=== PATIENT | male | born 1935 | race Caucasian/White ===

== ENCOUNTER 2017-06-21 10:35 | Emergency (ER) | payer MEDICARE, MEDICAID ==
[~2017-06-21] VITALS: Ht 175.3 cm; Wt 102.0 kg
[~2017-06-21 10:35] MED LIST: AMIO200T57 PO; APIX5TAB3 PO; CLOP75TA15 PO; DOCU-28 PO; FAMO-1 PO; FLO0.4C PO; GABA-530 PO; LEVO100T9 PO; LIDO700A35 TP; METH500T6 PO; SIMV20TA5 PO; TOLT4CAP PO; VAL2T PO
[2017-06-21] MEDS ORDERED: normal saline 1000ML IV soln IVB ONE ×2 (11:30→14:00)
[2017-06-21 13:03] LABS: BASOPHILS % (AUTO) 0.1 % (0-1); EOSINOPHILS % (AUTO) 0 % (0-6); HEMATOCRIT 45.2 % (42.0-52.0); HEMOGLOBIN 15.1 g/dl (14.0-17.9); LYMPHOCYTES # (AUTO) 0.8 X10'3 (1.1-4.8); LYMPHOCYTES % (AUTO) 5.7 % (21-51); MEAN CORPUSCULAR HEMOGLOBIN 33.2 PG (27.0-31.0); MEAN CORPUSCULAR HGB CONC 33.4 % (33.0-36.5); MEAN CORPUSCULAR VOLUME 99.4 FL (78-98); MEAN PLATELET VOLUME 7.6 FL (7.4-10.4); MONOCYTES # (AUTO) 0.5 X10'3 (0-0.9); MONOCYTES % (AUTO) 3.9 % (2-12); NEUTROPHILS # (AUTO) 12.2 X10'3 (1.8-7.7); NEUTROPHILS % (AUTO) 90.3 % (42-75); PLATELET COUNT 175 X10'3 (140-440); RED BLOOD COUNT 4.54 X10'6 (4.70-6.10); WHITE BLOOD COUNT 13.5 X10'3 (4.5-11.0)
[2017-06-21 13:44] LABS: CLARITY,URINE SLIGHTLY CLOUDY (Clear); COLOR,URINE YELLOW (Yellow); GLUCOSE, URINE NEGATIVE (Neg); KETONES,URINE 15 mg/dl (Neg); LEUKOCYTE ESTERASE ,URINE NEGATIVE (Neg); NITRITES, URINE NEGATIVE (Neg); OCCULT BLOOD,URINE LARGE (Neg); PROTEIN,URINE 30 mg/dl (Neg); UROBILINOGEN,URINE 0.2 E.U/dL (0.2-1.0)
[2017-06-21 13:46] LABS: UA COLLECTION TYPE CLN CATCH MIDSTREAM
[2017-06-21 13:56] LABS: MUCUS STRANDS MODERATE /LPF (Neg); RBC,URINE TNTC /HPF (0-2); RENAL CELLS, URINE FEW /HPF; SQUAMOUS EPITHELIAL CELL,UR FEW /LPF (FEW); TRANSITIONAL EPI CELLS,URINE FEW /HPF; WBC,URINE 0-4 /HPF (0-4)
[2017-06-21 13:59] LABS: BACTERIA,URINE FEW /HPF (Neg)
[2017-06-21 16:18] LABS: ALANINE AMINOTRANSFERASE 49 U/L (12-78); ALBUMIN 3.1 G/DL (3.4-5.0); ALBUMIN/GLOBULIN RATIO 0.6 (1.1-1.5); ALKALINE PHOSPHATASE 120 IU/L (46-116); ANION GAP 13 (8-16); ASPARTATE AMINO TRANSFERASE 54 U/L (10-37); BILIRUBIN,TOTAL 0.6 MG/DL (0.1-1.0); BLOOD UREA NITROGEN 14 MG/DL (7-18); BUN/CREATININE RATIO 13.7 (5.4-32.0); CALCIUM 8.6 MG/DL (8.5-10.1); CHLORIDE 100 MMOL/L (99-107); CREATININE 1.02 MG/DL (0.60-1.10); GLUCOSE 84 MG/DL (70-104); MAGNESIUM 1.7 MG/DL (1.5-2.4); POTASSIUM 3.7 MMOL/L (3.5-5.1); SODIUM 137 MMOL/L (135-145); TOTAL CARBON DIOXIDE 23.9 MMOL/L (24-32); TOTAL PROTEIN 8.2 G/DL (6.4-8.2); eGFR 70 ML/MIN
[2017-06-21] MEDS ORDERED: ketorolac trometh. 30mg/ml inj. IV ONE (17:05)
[2017-06-21] MEDS ORDERED: HYDROcodone/acetaminophen 10/325mg tab PO ONE (18:40)
[2017-06-21] MEDS ORDERED: HYDR-565 PO (18:59)
[2017-06-21 19:52] VITALS: BP 156/62
== END 2017-06-21 19:10 | disposition home or self-care (01) ==
LOC: ER 10:35
DX: G89.29 Other chronic pain (principal); R53.1 Weakness; F11.90 Opioid use, unspecified, uncomplicated; I48.91 Unspecified atrial fibrillation; I25.10 Atherosclerotic heart disease of native coronary artery without angina pectoris; E78.00 Pure hypercholesterolemia, unspecified; E03.9 Hypothyroidism, unspecified; I25.2 Old myocardial infarction; E11.22 Type 2 diabetes mellitus with diabetic chronic kidney disease; I12.9 Hypertensive chronic kidney disease with stage 1 through stage 4 chronic kidney disease, or unspecified chronic kidney disease; M06.9 Rheumatoid arthritis, unspecified; N18.9 Chronic kidney disease, unspecified; Z86.73 Personal history of transient ischemic attack (TIA), and cerebral infarction without residual deficits; Z79.899 Other long term (current) drug therapy; Z88.8 Allergy status to other drugs, medicaments and biological substances
CPT/HCPCS: 36415; 71045; 80053; 81001; 83605; 83735; 84145; 85025; 87040; 93005; 96361; 96374; 99285; A4315; J1885; J7030

== ENCOUNTER 2017-07-23 14:13 | Inpatient (IN) | payer MEDICARE, MEDICAID, OTHER ==
[~2017-07-23] VITALS: Ht 175.3 cm; Wt 102.3 kg
[2017-07-23 15:01] LABS: BASOPHILS % (AUTO) 0.5 % (0-1); EOSINOPHILS # (AUTO) 0.1 X10'3 (0-0.9); EOSINOPHILS % (AUTO) 2.6 % (0-6); HEMATOCRIT 38.7 % (42.0-52.0); HEMOGLOBIN 13.1 g/dl (14.0-17.9); LYMPHOCYTES # (AUTO) 1.7 X10'3 (1.1-4.8); MEAN CORPUSCULAR HEMOGLOBIN 33.9 PG (27.0-31.0); MEAN CORPUSCULAR HGB CONC 33.9 % (33.0-36.5); MEAN CORPUSCULAR VOLUME 99.9 FL (78-98); MEAN PLATELET VOLUME 7.3 FL (7.4-10.4); MONOCYTES # (AUTO) 0.3 X10'3 (0-0.9); MONOCYTES % (AUTO) 6.1 % (2-12); NEUTROPHILS # (AUTO) 3.2 X10'3 (1.8-7.7); NEUTROPHILS % (AUTO) 58.8 % (42-75); PLATELET COUNT 217 X10'3 (140-440); RED BLOOD COUNT 3.87 X10'6 (4.70-6.10); RED CELL DISTRIBUTION WIDTH 15.6 % (11.5-14.5); WHITE BLOOD COUNT 5.4 X10'3 (4.5-11.0)
[2017-07-23] MEDS ORDERED: normal saline 1000ml 1,000 ML IV ONE (15:10)
[2017-07-23 15:12] LABS: INR 1.1 INR; PARTIAL THROMBOPLASTIN TIME 30 SECONDS (22-32); PROTHROMBIN TIME 11.4 SECONDS (9.0-12.0)
[2017-07-23] MEDS ORDERED: acetaminophen 325mg tablet PO ONE (15:20)
[2017-07-23 15:28] LABS: ALANINE AMINOTRANSFERASE 32 U/L (12-78); ALBUMIN 3.3 G/DL (3.4-5.0); ALBUMIN/GLOBULIN RATIO 0.8 (1.1-1.5); ALKALINE PHOSPHATASE 65 IU/L (46-116); ANION GAP 10 (8-16); ASPARTATE AMINO TRANSFERASE 19 U/L (10-37); BILIRUBIN,TOTAL 0.3 MG/DL (0.1-1.0); BLOOD UREA NITROGEN 27 MG/DL (7-18); BUN/CREATININE RATIO 22.1 (5.4-32.0); CHLORIDE 106 MMOL/L (99-107); CREATININE 1.22 MG/DL (0.60-1.10); GLUCOSE 133 MG/DL (70-104); MAGNESIUM 2.1 MG/DL (1.5-2.4); PHOSPHORUS 3.9 MG/DL (2.3-4.5); POTASSIUM 4.1 MMOL/L (3.5-5.1); SODIUM 141 MMOL/L (135-145); TOTAL CARBON DIOXIDE 24.8 MMOL/L (24-32); TOTAL PROTEIN 7.4 G/DL (6.4-8.2); TROPONIN I < 0.04 NG/ML (0.0-0.05); eGFR 57 ML/MIN
[2017-07-23 16:07] LABS: CLARITY,URINE CLEAR (Clear); COLOR,URINE YELLOW (Yellow); GLUCOSE, URINE NEGATIVE (Neg); KETONES,URINE NEGATIVE (Neg); LEUKOCYTE ESTERASE ,URINE NEGATIVE (Neg); NITRITES, URINE NEGATIVE (Neg); OCCULT BLOOD,URINE NEGATIVE (Neg); PROTEIN,URINE NEGATIVE (Neg); UROBILINOGEN,URINE 0.2 E.U/dL (0.2-1.0)
[2017-07-23 16:15] LABS: UA COLLECTION TYPE CLN CATCH MIDSTREAM
[2017-07-23] MEDS ORDERED: acetaminophen 325mg tablet PO PRN (16:45)
[2017-07-23] MEDS ORDERED: magnesium hydroxide 30ml (MOM) UD suspension PO PRN (16:45)
[2017-07-23] MEDS ORDERED: ondansetron/PF 4mg/2ml inj IV PRN (16:45)
[2017-07-23] MEDS ORDERED: mag hydrox/Alum hydrox/simeth 30ml oral suspension PO PRN (16:45)
[2017-07-23] MEDS: normal saline 1000ml 1,000 ML IV SCH (17:38)
[2017-07-23 19:32] LABS: CHOL/HDL RATIO 2.8 (0.00-4.99); CHOLESTEROL 153 MG/DL (0-200); HDL CHOLESTEROL 55 MG/DL (35-60); LDL CHOLESTEROL 79 MG/DL (50-100); TRIGLYCERIDES 89 MG/DL (20-135)
[2017-07-23] MEDS: apixaban 5mg tablet PO SCH (20:53)
[2017-07-23] MEDS: docusate sod 100mg capsule PO SCH (20:53)
[2017-07-23] MEDS: gabapentin 300mg capsule PO SCH (20:54)
[2017-07-23] MEDS: heparin, porcine 5000 units/ml vial SQ SCH (20:54)
[2017-07-23] MEDS: famotidine 20mg tablet PO SCH (20:54)
[2017-07-23] MEDS ORDERED: atorvastatin 10mg tablet PO SCH (21:00)
[2017-07-23] MEDS ORDERED: HYDR-3972 (21:12)
[2017-07-23] MEDS: HYDROcodone/acetaminophen 10/325mg tab PO PRN (21:18)
[2017-07-24] MEDS: normal saline 1000ml 1,000 ML IV SCH ×2 (03:00→12:45)
[2017-07-24 06:23] LABS: BASOPHILS % (AUTO) 0.7 % (0-1); EOSINOPHILS # (AUTO) 0.2 X10'3 (0-0.9); EOSINOPHILS % (AUTO) 5.2 % (0-6); HEMATOCRIT 38.2 % (42.0-52.0); HEMOGLOBIN 12.9 g/dl (14.0-17.9); LYMPHOCYTES # (AUTO) 1.7 X10'3 (1.1-4.8); LYMPHOCYTES % (AUTO) 38.4 % (21-51); MEAN CORPUSCULAR HEMOGLOBIN 34.3 PG (27.0-31.0); MEAN CORPUSCULAR HGB CONC 33.9 % (33.0-36.5); MEAN CORPUSCULAR VOLUME 101.1 FL (78-98); MEAN PLATELET VOLUME 7.3 FL (7.4-10.4); MONOCYTES # (AUTO) 0.3 X10'3 (0-0.9); MONOCYTES % (AUTO) 7.3 % (2-12); NEUTROPHILS # (AUTO) 2.2 X10'3 (1.8-7.7); NEUTROPHILS % (AUTO) 48.4 % (42-75); PLATELET COUNT 187 X10'3 (140-440); RED BLOOD COUNT 3.77 X10'6 (4.70-6.10); RED CELL DISTRIBUTION WIDTH 15.9 % (11.5-14.5); WHITE BLOOD COUNT 4.5 X10'3 (4.5-11.0)
[2017-07-24 06:34] LABS: ALBUMIN 2.8 G/DL (3.4-5.0); ANION GAP 7 (8-16); BLOOD UREA NITROGEN 16 MG/DL (7-18); BUN/CREATININE RATIO 16.7 (5.4-32.0); CALCIUM 8.9 MG/DL (8.5-10.1); CHLORIDE 109 MMOL/L (99-107); CREATININE 0.96 MG/DL (0.60-1.10); GLUCOSE 95 MG/DL (70-104); POTASSIUM 3.7 MMOL/L (3.5-5.1); SODIUM 144 MMOL/L (135-145); eGFR 75 ML/MIN
[2017-07-24] MEDS ORDERED: levoTHYROXINE 75mcg tablet PO SCH (07:00)
[2017-07-24] MEDS: docusate sod 100mg capsule PO SCH (07:39)
[2017-07-24] MEDS: famotidine 20mg tablet PO SCH (07:39)
[2017-07-24] MEDS: gabapentin 300mg capsule PO SCH ×2 (07:39→13:53)
[2017-07-24] MEDS: HYDROcodone/acetaminophen 10/325mg tab PO PRN ×2 (07:40→14:47)
[2017-07-24] MEDS: heparin, porcine 5000 units/ml vial SQ SCH (07:41)
[2017-07-24] MEDS ORDERED: tolterodine 2mg SR capsule (24hr) PO SCH (08:00)
[2017-07-24] MEDS ORDERED: clopidogrel 75mg tablet PO SCH (08:00)
[2017-07-24] MEDS ORDERED: LEVOTHYROXINE SODIUM 75 MCG PO SCH (08:00)
[2017-07-24] MEDS ORDERED: TOLTERODINE TARTRATE 4 MG PO SCH (08:00)
[2017-07-24] MEDS ORDERED: LIDOcaine 5% patch TP SCH (08:00)
[2017-07-24] MEDS ORDERED: amiodarone 200mg tablet PO SCH (08:00)
[2017-07-24] MEDS ORDERED: tamsulosin 0.4mg capsule PO SCH (08:00)
[2017-07-24] MEDS: apixaban 5mg tablet PO SCH (08:09)
[2017-07-24 18:30] VITALS: BP 153/65
[2017-07-25] MEDS ORDERED: pneumococcal 23-VAL P-sac vacc 25 mcg/0.5ml vial IMVAC ONE (10:00)
== END 2017-07-24 19:27 | disposition home or self-care (01) | DRG 69 ==
LOC: ER 14:14 → ED HOLD 16:45
PROVIDERS: ADMIT Family Medicine; ATTEND Family Medicine
DX: G45.9 Transient cerebral ischemic attack, unspecified (principal); E11.22 Type 2 diabetes mellitus with diabetic chronic kidney disease; I12.0 Hypertensive chronic kidney disease with stage 5 chronic kidney disease or end stage renal disease; I48.91 Unspecified atrial fibrillation; N18.6 End stage renal disease; E78.00 Pure hypercholesterolemia, unspecified; M06.9 Rheumatoid arthritis, unspecified; E78.5 Hyperlipidemia, unspecified; E89.0 Postprocedural hypothyroidism; G89.29 Other chronic pain; I25.10 Atherosclerotic heart disease of native coronary artery without angina pectoris; I25.2 Old myocardial infarction; Z91.14 Patient's other noncompliance with medication regimen; Z88.8 Allergy status to other drugs, medicaments and biological substances; Z79.899 Other long term (current) drug therapy; Z79.01 Long term (current) use of anticoagulants; Z87.11 Personal history of peptic ulcer disease; Z86.73 Personal history of transient ischemic attack (TIA), and cerebral infarction without residual deficits
CPT/HCPCS: 36415; 70450; 70544; 70553; 71045; 72125; 80048; 80053; 80061; 81003; 82948; 83605; 83735; 84100; 84443; 84484; 85025; 85610; 85651; 85730; 87040; 87070; 93005; 93306; 93880; 99285; J1644; J7030

== ENCOUNTER 2017-07-26 15:32 | Observation (INO) | payer MEDICARE, MEDICAID, OTHER ==
[~2017-07-26] VITALS: Ht 177.8 cm; Wt 100.9 kg
[~2017-07-26 15:32] MED LIST changes: +HYDR-3972; -METH500T6 PO; -VAL2T PO
[2017-07-26] MEDS ORDERED: FLEC100T2 PO (15:53)
[2017-07-26] MEDS ORDERED: normal saline 1000ML IV soln IVB ONE (17:35)
[2017-07-26 18:03] LABS: BASOPHILS % (AUTO) 0.5 % (0-1); EOSINOPHILS # (AUTO) 0.1 X10'3 (0-0.9); EOSINOPHILS % (AUTO) 2.5 % (0-6); HEMATOCRIT 39.6 % (42.0-52.0); HEMOGLOBIN 13.6 g/dl (14.0-17.9); LYMPHOCYTES # (AUTO) 1.3 X10'3 (1.1-4.8); LYMPHOCYTES % (AUTO) 23.2 % (21-51); MEAN CORPUSCULAR HEMOGLOBIN 34.3 PG (27.0-31.0); MEAN CORPUSCULAR HGB CONC 34.3 % (33.0-36.5); MEAN CORPUSCULAR VOLUME 99.9 FL (78-98); MEAN PLATELET VOLUME 7.1 FL (7.4-10.4); MONOCYTES # (AUTO) 0.4 X10'3 (0-0.9); MONOCYTES % (AUTO) 6.7 % (2-12); NEUTROPHILS # (AUTO) 3.9 X10'3 (1.8-7.7); NEUTROPHILS % (AUTO) 67.1 % (42-75); PLATELET COUNT 192 X10'3 (140-440); RED BLOOD COUNT 3.96 X10'6 (4.70-6.10); RED CELL DISTRIBUTION WIDTH 15.7 % (11.5-14.5); WHITE BLOOD COUNT 5.7 X10'3 (4.5-11.0)
[2017-07-26 18:14] LABS: INR 1.1 INR; PROTHROMBIN TIME 11.3 SECONDS (9.0-12.0)
[2017-07-26 18:27] LABS: MAGNESIUM 2.2 MG/DL (1.5-2.4)
[2017-07-26 18:38] LABS: ALANINE AMINOTRANSFERASE 30 U/L (12-78); ALBUMIN 3.5 G/DL (3.4-5.0); ALBUMIN/GLOBULIN RATIO 0.7 (1.1-1.5); ALKALINE PHOSPHATASE 77 IU/L (46-116); ANION GAP 8 (8-16); ASPARTATE AMINO TRANSFERASE 25 U/L (10-37); BILIRUBIN,TOTAL 0.3 MG/DL (0.1-1.0); BLOOD UREA NITROGEN 25 MG/DL (7-18); BUN/CREATININE RATIO 18.7 (5.4-32.0); CHLORIDE 104 MMOL/L (99-107); CREATININE 1.34 MG/DL (0.60-1.10); GLUCOSE 118 MG/DL (70-104); POTASSIUM 4.2 MMOL/L (3.5-5.1); SODIUM 140 MMOL/L (135-145); TOTAL CARBON DIOXIDE 28.3 MMOL/L (24-32); TOTAL PROTEIN 8.2 G/DL (6.4-8.2); eGFR 51 ML/MIN
[2017-07-26] MEDS ORDERED: HYDROcodone/acetaminophen 10/325mg tab PO ONE (18:40)
[2017-07-26] MEDS ORDERED: potassium Cl 40MEQ/NS 500ml 500 ML IV PRN ×2 (20:00)
[2017-07-26] MEDS ORDERED: acetaminophen 325mg tablet PO PRN (20:00)
[2017-07-26] MEDS ORDERED: magnesium hydroxide 30ml (MOM) UD suspension PO PRN (20:00)
[2017-07-26] MEDS ORDERED: mag hydrox/Alum hydrox/simeth 30ml oral suspension PO PRN (20:00)
[2017-07-26] MEDS ORDERED: potassium Cl 20 mEq SR tablet PO PRN ×2 (20:00)
[2017-07-26] MEDS ORDERED: ondansetron/PF 4mg/2ml inj IV PRN (20:00)
[2017-07-26] MEDS ORDERED: dextrose 50%-water 50ml dispensing syringe IV PRN ×2 (20:10)
[2017-07-26] MEDS ORDERED: dextrose ORAL solution 15 GM/59 ML bottle PO PRN ×2 (20:10)
[2017-07-26] MEDS ORDERED: MESSAGE TO PHARMACY PO ONE (20:10)
[2017-07-26] MEDS ORDERED: glucagon, human recombinant 1mg kit SUBCUT PRN (20:10)
[2017-07-26] MEDS ORDERED: insulin Lispro (HumaLOG) vial - multi-dose SQ SCH (20:10)
[2017-07-26 20:25] LABS: HEMOGLOBIN A1C 5.9 % (4.5-6.2)
[2017-07-26] MEDS ORDERED: tolterodine 2mg SR capsule (24hr) PO SCH (21:00)
[2017-07-26] MEDS ORDERED: insulin glargine (Lantus) pen - multi-dose SQ SCH (21:00)
[2017-07-26] MEDS ORDERED: atorvastatin 10mg tablet PO SCH (21:00)
[2017-07-26] MEDS: gabapentin 100mg capsule PO SCH (22:34)
[2017-07-27] MEDS ORDERED: magnesium 2GM in 50ml NS 50 ML IV ONE (00:20)
[2017-07-27] MEDS ORDERED: sodium bicarbonate (8.4%) 1 mEq/ml syringe ONE (00:47)
[2017-07-27] MEDS: sodium bicarbonate (8.4%) inj. 100 MEQ in sodium chloride 0.45% 1,000 ML IV SCH ×2 (00:58→10:00)
[2017-07-27] MEDS ORDERED: Melatonin 3mg tablet PO PRN (01:25)
[2017-07-27] MEDS: HYDROcodone/acetaminophen 5mg/325mg tablet PO PRN ×2 (02:57→09:37)
[2017-07-27 04:25] LABS: ALBUMIN 2.9 G/DL (3.4-5.0); ANION GAP 7 (8-16); BLOOD UREA NITROGEN 21 MG/DL (7-18); BUN/CREATININE RATIO 15.1 (5.4-32.0); CALCIUM 8.5 MG/DL (8.5-10.1); CHLORIDE 107 MMOL/L (99-107); CREATININE 1.39 MG/DL (0.60-1.10); GLUCOSE 107 MG/DL (70-104); MAGNESIUM 2.4 MG/DL (1.5-2.4); PHOSPHORUS 3.5 MG/DL (2.3-4.5); POTASSIUM 3.8 MMOL/L (3.5-5.1); SODIUM 143 MMOL/L (135-145); TOTAL CARBON DIOXIDE 28.6 MMOL/L (24-32); eGFR 49 ML/MIN
[2017-07-27 06:33] LABS: BASOPHILS % (AUTO) 0.5 % (0-1); EOSINOPHILS # (AUTO) 0.3 X10'3 (0-0.9); EOSINOPHILS % (AUTO) 4.2 % (0-6); HEMATOCRIT 35.4 % (42.0-52.0); LYMPHOCYTES # (AUTO) 2.1 X10'3 (1.1-4.8); LYMPHOCYTES % (AUTO) 33.9 % (21-51); MEAN CORPUSCULAR HGB CONC 33.8 % (33.0-36.5); MEAN CORPUSCULAR VOLUME 100.5 FL (78-98); MEAN PLATELET VOLUME 7.4 FL (7.4-10.4); MONOCYTES # (AUTO) 0.5 X10'3 (0-0.9); MONOCYTES % (AUTO) 7.5 % (2-12); NEUTROPHILS # (AUTO) 3.3 X10'3 (1.8-7.7); NEUTROPHILS % (AUTO) 53.9 % (42-75); PLATELET COUNT 172 X10'3 (140-440); RED BLOOD COUNT 3.52 X10'6 (4.70-6.10); RED CELL DISTRIBUTION WIDTH 15.6 % (11.5-14.5); WHITE BLOOD COUNT 6.1 X10'3 (4.5-11.0)
[2017-07-27 06:42] LABS: ALBUMIN 2.7 G/DL (3.4-5.0); ANION GAP 6 (8-16); BLOOD UREA NITROGEN 22 MG/DL (7-18); BUN/CREATININE RATIO 17.7 (5.4-32.0); CALCIUM 8.5 MG/DL (8.5-10.1); CHLORIDE 107 MMOL/L (99-107); CREATININE 1.24 MG/DL (0.60-1.10); GLUCOSE 104 MG/DL (70-104); MAGNESIUM 2.4 MG/DL (1.5-2.4); PHOSPHORUS 3.5 MG/DL (2.3-4.5); POTASSIUM 3.9 MMOL/L (3.5-5.1); SODIUM 143 MMOL/L (135-145); TOTAL CARBON DIOXIDE 30.2 MMOL/L (24-32); eGFR 56 ML/MIN
[2017-07-27] MEDS ORDERED: levoTHYROXINE 75mcg tablet PO SCH (07:00)
[2017-07-27] MEDS ORDERED: FURO-150 PO (07:19)
[2017-07-27] MEDS ORDERED: AMOX500C2 PO (07:19)
[2017-07-27] MEDS ORDERED: famotidine 20mg tablet PO SCH (08:00)
[2017-07-27] MEDS ORDERED: docusate sod 100mg capsule PO SCH (08:00)
[2017-07-27] MEDS ORDERED: amiodarone 200mg tablet PO SCH (08:00)
[2017-07-27] MEDS ORDERED: apixaban 5mg tablet PO SCH (08:00)
[2017-07-27] MEDS ORDERED: TOLTERODINE TARTRATE 4 MG PO SCH (08:00)
[2017-07-27] MEDS ORDERED: LIDOcaine 5% patch TP SCH (08:00)
[2017-07-27] MEDS ORDERED: K and/or MAG REPLACEMENT MC SCH (08:00)
[2017-07-27] MEDS ORDERED: LEVOTHYROXINE SODIUM 75 MCG PO SCH (08:00)
[2017-07-27] MEDS ORDERED: clopidogrel 75mg tablet PO SCH (08:00)
[2017-07-27] MEDS ORDERED: tamsulosin 0.4mg capsule PO SCH (08:00)
[2017-07-27] MEDS ORDERED: tolterodine 2mg SR capsule (24hr) PO SCH (08:00)
[2017-07-27] MEDS: gabapentin 100mg capsule PO SCH ×2 (09:37→13:08)
[2017-07-27 13:17] VITALS: BP 138/85
[2017-07-27] MEDS ORDERED: ATOR10TA PO (14:25)
[2017-07-27] MEDS ORDERED: TAMS0.4C32 PO (14:25)
== END 2017-07-27 15:04 | disposition home or self-care (01) ==
LOC: ER 15:33 → ED HOLD 20:00 → EDBEDREQ 07-27 14:16
PROVIDERS: ADMIT Family Medicine; ATTEND Family Medicine
DX: T46.2X1A Poisoning by other antidysrhythmic drugs, accidental (unintentional), initial encounter (principal); E03.9 Hypothyroidism, unspecified; I12.9 Hypertensive chronic kidney disease with stage 1 through stage 4 chronic kidney disease, or unspecified chronic kidney disease; E11.22 Type 2 diabetes mellitus with diabetic chronic kidney disease; N18.9 Chronic kidney disease, unspecified; E78.00 Pure hypercholesterolemia, unspecified; E78.5 Hyperlipidemia, unspecified; I25.10 Atherosclerotic heart disease of native coronary artery without angina pectoris; I48.91 Unspecified atrial fibrillation; M06.9 Rheumatoid arthritis, unspecified; G89.29 Other chronic pain; Y92.89 Other specified places as the place of occurrence of the external cause; Z86.73 Personal history of transient ischemic attack (TIA), and cerebral infarction without residual deficits; Z87.11 Personal history of peptic ulcer disease
CPT/HCPCS: 36415; 71045; 80048; 80053; 83036; 83735; 83880; 84100; 84484; 85025; 85610; 87070; 93005; 96361; 96365; 96368; 99285; G0378; J3475; J7030; J1815